=== PATIENT | male | born 1980 | race Caucasian/White ===

== ENCOUNTER → 2016-07-12 | Outpatient (CLI) | payer OTHER | END | disposition disaster alternative care site (69) | LOC: GRAD 14:39 | PROC: BQ01YZZ Plain Radiography of Left Hip using Other Contrast (ICD-10-PCS; principal; 2016-07-12) | DX: S79.911A Unspecified injury of right hip, initial encounter (principal); S76.291A Other injury of adductor muscle, fascia and tendon of right thigh, initial encounter; K40.90 Unilateral inguinal hernia, without obstruction or gangrene, not specified as recurrent; X58.XXXA Exposure to other specified factors, initial encounter ==